=== PATIENT | male | born 1955 | race Caucasian/White ===

== ENCOUNTER 2018-02-23 11:48 | Inpatient (IN) | payer OTHER ==
[2018-02-23] VITALS (7 sets, daily range): BP systolic 148–188; BP diastolic 82–98
[~2018-02-23] VITALS: Ht 182.9 cm; Wt 82.5 kg
[2018-02-23] MEDS ORDERED: SODIUM CHLORIDE FLUSH 10ML SYR IVF ONE (12:30)
[2018-02-23 12:34] LABS: BASOPHILS # (AUTO) 0.03 x10^3/uL (0-0.1); BASOPHILS % (AUTO) 0 % (0-1); EOSINOPHILS # (AUTO) 0.15 x10^3/uL (0-0.4); EOSINOPHILS % (AUTO) 2 % (1-7); LYMPHOCYTES # (AUTO) 0.69 x10^3/uL (1-3.4); LYMPHOCYTES % (AUTO) 9 % (22-44); MD NO; MEAN CORPUSCULAR HEMOGLOBIN 31.8 pg (27.5-34.5); MEAN CORPUSCULAR HGB CONC 34.5 g/dL (33.2-36.2); MEAN CORPUSCULAR VOLUME 92.2 fL (81-97); MONOCYTES # (AUTO) 0.55 x10^3/uL (0.2-0.8); MONOCYTES % (AUTO) 7 % (2-9); NEUTROPHILS # (AUTO) 6.26 x10^3/uL (1.8-6.8); NEUTROPHILS % (AUTO) 82 % (42-75); PLATELET COUNT 218 x10^3/uL (130-400); RED BLOOD COUNT 5.01 x10^6/uL (4.38-5.82); RED CELL DISTRIBUTION WIDTH 13.1 % (9.4-14.8)
--- NOTE | 2018-02-23 12:37 | NUR ---
Jennifer Khan- sister [phone]
[2018-02-23 12:41] LABS: INTERNATIONAL NORMALIZED RATIO 2.01 (0.93-1.1); PROTHROMBIN TIME 20.7 Seconds (9.6-11.5)
[2018-02-23 12:44] LABS: ALANINE AMINOTRANSFERASE 23 U/L (12-78); ALBUMIN 3.6 g/dL (3.4-5.0); ANION GAP 6 mmol/L (5-15); CALCIUM 8.4 mg/dL (8.5-10.1); CHLORIDE 111 mmol/L (98-107); CREATININE 1.12 mg/dL (0.7-1.3); SALICYLATE LEVEL 1.7 mg/dL (2.8-20.0)
[2018-02-23 12:49] LABS: ALKALINE PHOSPHATASE 131 U/L (45-117); BILIRUBIN,TOTAL 0.4 mg/dL (0.2-1.0); TOTAL PROTEIN 7.7 g/dL (6.4-8.2); TROPONIN I < 0.015 ng/mL (0.000-0.045)
[2018-02-23 12:50] LABS: ACETAMINOPHEN < 2 mcg/mL (10-30)
[2018-02-23] MEDS ORDERED: CYAN500L4 PO (13:37)
[2018-02-23] MEDS ORDERED: ATOR10TA9 PO (13:37)
[2018-02-23] MEDS ORDERED: LISI2.5T PO (13:41)
[2018-02-23] MEDS ORDERED: OMEP10CA4 PO (13:41)
[2018-02-23] MEDS ORDERED: TERA1CAP3 PO (13:41)
[2018-02-23] MEDS ORDERED: SIMV5TAB14 PO (13:41)
[2018-02-23] MEDS ORDERED: NIFE10CA49 PO (13:41)
[2018-02-23] MEDS ORDERED: SPIR25TA5 PO (13:41)
[2018-02-23] MEDS ORDERED: WARF1TAB74 PO (13:41)
--- NOTE | 2018-02-23 13:41 | NUR ---
LATE NOTE ENTRY FOR 1208. PT BROUGHT IN BY EMS WITH C/O RIGHT SIDED WEAKNESS AND DEFECITS FOR THREE DAYS WITH "SIGNIFICANT INCREASE IN WEAKNESS FOR THE LAST TWO DAYS." PT HAS MILD WEAKNESS OF LEFT HAND AND MILD WEAKNESS OF RIGHT LEG UPON ASSESSMENT AT BEDSIDE. PT IS AOX4 BUT HAS DIFFICULTY REMEMBERING NAMES OF HIS DOCTORS. PT STATES, "I USE TO DRINK A FEW BEERS A DAY, BUT I QUIT ABOUT A WEEK AGO BECAUSE I WASN'T FEELING WELL." PT'S CLOTHES SATURATED IN URINE UPON ARRIVAL. PT INCONTINENT OF URINE AT HOME DUE TO INABILITY TO GET UP FROM HIS BED. PT LIVES WITH HIS BROTHER IN A 5TH WHEEL PER EMS. PER EMS, "HIS BROTHER LEFT ON 02/10 AND CAME BACK ABOUT 3 DAYS AGO. WHEN THE BROTHER RETURNED HE NOTICED THE PT HAD WEAKENSS. PT AT THE TIME WOULD NOT COME IN FOR MEDICAL ATTENTION. PT AGREED TO SEEK MEDICAL ATTENTION TODAY." PT HAS UNLABORED RESPIRATIONS EQUAL BILATERALLY. PT CONNECTED TO ALL MONITORS. PROVIDED PT HOSPITAL GOWN AND ASSISTED PT WITH REMOVING PERSONAL CLOTHING AND WEARING GOWN. PROVIDED PT WARM BLANKETS FOR COMFORT MEASURES. ALL SAFETY MEASURES IN PLACE AT THIS TIME. PER EMS FSBG 41. EMS PROVIDED D 10 PIV 200 ML. RECHECKED FSBG TWO TIMES, 116 AND 162 PER EMS. CHECKED PT'S BLOOD SUGAR AT BEDSIDE UPON ARRIVAL. FSBG 170.
--- NOTE | 2018-02-23 13:52 | NUR ---
PT RESTING ON GURNEY CONNECTED TO ALL MONITORS. NADN. NO NEEDS EXPRESSED FROM PT AT THIS TIME. ALL SAFETY MEASURES IN PLACE. PT HAS CALL LIGHT WITH IN REACH. NO NEEDS EXPRESSED FROM PT AT THIS TIME.
[2018-02-23] MEDS ORDERED: INSTRUCTION SEE COMMENTS XX ONE (14:00)
[2018-02-23] MEDS ORDERED: PHYTONADIONE 5 MG in SODIUM CHLORIDE 0.9% 50 ML IV ONE ×2 (14:00→16:30)
--- NOTE | 2018-02-23 14:05 | NUR ---
PT'S SISTER BRISEIDA CALLED. PT GIVES VERBAL CONSENT TO SPEAK TO HIS SISTER. UPDATED BRISEIDA ON PT'S PLAN OF CARE. BRISEIDA STATES, "LET HIM KNOW WE ARE PRAYING FOR HIM AND WE ARE COMING UP FROM [facility] TO BE WITH HIM." PT AWARE.
--- NOTE | 2018-02-23 14:13 | NUR ---
PT RESTING ON GURNEY. PT ASKS, "AM I GOING TO BE OKAY." PROVIDED COMFORT MEASURES TO PT AND PROVIDED WARM BLANKETS. RELAYED MESSAGE FROM PT'S SISTER BRISEIDA TO PT. PT APPRECIATIVE. NADN. PT REQUESTING A SANDWICH. PT EDUCATED ON NPO STATUS AND STATES UNDERSTANDING. ALL SAFETY MEASURES IN PLACE.
--- NOTE | 2018-02-23 14:27 | NUR ---
PROVIDED REPORT TO SANJEEV GREENBERG ALL QUESTIONS ANSWERED.
[2018-02-23] MEDS: SODIUM CHLORIDE 0.9% 1,000 ML IV SCH (15:40)
--- NOTE | 2018-02-23 15:44 | NUR ---
Note sweetie in ED - 02/23/18 at 1545 by CHIDI LATE NOTE ENTRY FOR 1500. PROVIDED REPORT TO SANJEEV FERRARI TASK RN. ALL QUESTIONS ANSWERED.
--- NOTE | 2018-02-23 15:46 | NUR ---
LATE NOTE ENTRY FOR 1500. PROVIDED REPORT TO SANJEEV FERRARI TASK RN. ALL QUESTIONS ANSWERED. SANJEEV FERRARI ASSUMING CARE OF PT DURING THIS RN LUNCH BREAK.
--- NOTE | 2018-02-23 15:46 | NUR ---
PT TRANSPORTED TO FLOOR FROM ED WITH PIV [facility] INFUSING AND MEDS PER [facility] INFUSING. PT LEFT WITH ALL PERSONAL BELONGINGS.
[2018-02-23] MEDS: THIAMINE 200 MG, FOLIC ACID 1 MG, MVI ADULT 10 ML in SODIUM CHLORIDE 0.9% 1,000 ML IV SCH (17:42)
[2018-02-23] MEDS: PANTOPRAZOLE 40 MG IV IVPush SCH (17:42)
[2018-02-23 18:26] LABS: CULTURE INDICATED? NO; MICROSCOPIC NOT IND
[2018-02-23 18:34] LABS: AMPHETAMINE SCREEN, URINE Negative (Negative); BARBITURATE SCREEN, URINE Negative (Negative); BENZODIAZEPINE SCREEN, URINE Negative (Negative); CANNABINOID SCREEN, URINE Positive (Negative); COCAINE SCREEN, URINE Negative (Negative); METHADONE SCREEN, URINE Negative (Negative); OPIATE SCREEN, URINE Negative (Negative)
[2018-02-24 00:56] LABS: BASOPHILS % (AUTO) 0 % (0-1); EOSINOPHILS # (AUTO) 0.06 x10^3/uL (0-0.4); EOSINOPHILS % (AUTO) 1 % (1-7); LYMPHOCYTES # (AUTO) 0.69 x10^3/uL (1-3.4); LYMPHOCYTES % (AUTO) 9 % (22-44); MD NO; MEAN CORPUSCULAR HEMOGLOBIN 31.9 pg (27.5-34.5); MEAN CORPUSCULAR HGB CONC 34.7 g/dL (33.2-36.2); MEAN CORPUSCULAR VOLUME 92.1 fL (81-97); MEAN PLATELET VOLUME 7.9 fL (7.4-10.4); MONOCYTES % (AUTO) 9 % (2-9); NEUTROPHILS % (AUTO) 81 % (42-75); PLATELET COUNT 197 x10^3/uL (130-400); RED BLOOD COUNT 4.85 x10^6/uL (4.38-5.82); RED CELL DISTRIBUTION WIDTH 13.2 % (9.4-14.8)
[2018-02-24 01:03] LABS: INTERNATIONAL NORMALIZED RATIO 1.18 (0.93-1.1); PROTHROMBIN TIME 12.4 Seconds (9.6-11.5)
[2018-02-24 01:06] LABS: ALANINE AMINOTRANSFERASE 23 U/L (12-78); ALBUMIN 3.5 g/dL (3.4-5.0); ANION GAP 9 mmol/L (5-15); CALCIUM 8.6 mg/dL (8.5-10.1); CHLORIDE 105 mmol/L (98-107); CREATININE 0.89 mg/dL (0.7-1.3)
[2018-02-24 01:33] LABS: ALKALINE PHOSPHATASE 115 U/L (45-117); BILIRUBIN,TOTAL 0.6 mg/dL (0.2-1.0); THYROID STIMULATING HORMONE 0.601 mIU/L (0.358-3.740); TOTAL PROTEIN 7.6 g/dL (6.4-8.2)
[2018-02-24] MEDS: SODIUM CHLORIDE 0.9% 1,000 ML IV SCH ×2 (03:56→14:34)
[2018-02-24 03:57] VITALS: BP 157/87
[2018-02-24] MEDS ORDERED: THROMBIN 5,000 UNIT VIAL TP ONE (05:36)
[2018-02-24] MEDS ORDERED: BUPIVACAINE/PF-EPI 0.5% 1:200K ONE (05:36)
[2018-02-24] MEDS ORDERED: BACITRACIN 50,000 UNIT ONE (05:36)
[2018-02-24] MEDS ORDERED: MANNITOL PMX 20% 500 ML ONE (06:21)
[2018-02-24] MEDS ORDERED: PROPOFOL 10 MG/ML, 20ML ONE (06:26)
[2018-02-24] MEDS ORDERED: FENTANYL PF 250 MCG/5ML ONE (06:26)
[2018-02-24] MEDS ORDERED: ROCURONIUM 10MG/ML,5ML ONE ×2 (06:26→08:30)
[2018-02-24] MEDS ORDERED: CEFAZOLIN 1,000 MG ONE ×2 (06:27)
[2018-02-24] MEDS ORDERED: DEXAMETHASONE 4 MG/ML, 1ML ONE ×2 (06:27)
[2018-02-24] MEDS ORDERED: PROPOFOL 50 ML ONE (06:28)
[2018-02-24] MEDS ORDERED: hydrALAzine 20 MG/ML, 1ML IV PRN (07:00)
[2018-02-24] MEDS ORDERED: MORPHINE SULFATE 4 MG/ML, 1ML IVPush PRN (07:00)
[2018-02-24] MEDS ORDERED: METOPROLOL 1 MG/ML, 5ML IV PRN (07:00)
[2018-02-24] MEDS ORDERED: OXYcodone 5 MG/5 ML ORAL.SOL UDC PO PRN (07:00)
[2018-02-24] MEDS ORDERED: FENTANYL PF 100 MCG/2ML IV PRN (07:00)
[2018-02-24] MEDS ORDERED: EPHEDRINE 50 MG/ML, 1ML ONE (07:34)
[2018-02-24] MEDS ORDERED: CEFAZOLIN 1,000 MG IM SCH (09:30)
[2018-02-24] MEDS: CEFAZOLIN PMX 1GM/50ML 50 ML IV SCH ×2 (11:38→18:39)
[2018-02-24] MEDS ORDERED: MAGNESIUM SULFATE PMX 2GM/50ML 50 ML IV ONE (12:00)
[2018-02-24] MEDS: ERGOCALCIFEROL 50,000 UNIT CAPSULE PO SCH (12:51)
[2018-02-24] MEDS: THIAMINE 200 MG, FOLIC ACID 1 MG, MVI ADULT 10 ML in SODIUM CHLORIDE 0.9% 1,000 ML IV SCH (16:27)
[2018-02-24] MEDS: PANTOPRAZOLE 40 MG IV IVPush SCH (16:27)
[2018-02-25] MEDS: CEFAZOLIN PMX 1GM/50ML 50 ML IV SCH (01:54)
[2018-02-25 04:00] VITALS: BP 137/95
[2018-02-25] MEDS: SODIUM CHLORIDE 0.9% 1,000 ML IV SCH (04:09)
[2018-02-25 04:17] LABS: INTERNATIONAL NORMALIZED RATIO 1.01 (0.93-1.1); PROTHROMBIN TIME 10.7 Seconds (9.6-11.5)
[2018-02-25 04:18] LABS: BASOPHILS # (AUTO) 0.02 x10^3/uL (0-0.1); BASOPHILS % (AUTO) 0 % (0-1); EOSINOPHILS % (AUTO) 0 % (1-7); LYMPHOCYTES # (AUTO) 0.41 x10^3/uL (1-3.4); LYMPHOCYTES % (AUTO) 4 % (22-44); MD NO; MEAN CORPUSCULAR HEMOGLOBIN 31.8 pg (27.5-34.5); MEAN CORPUSCULAR HGB CONC 33.9 g/dL (33.2-36.2); MEAN CORPUSCULAR VOLUME 93.8 fL (81-97); MEAN PLATELET VOLUME 8.1 fL (7.4-10.4); MONOCYTES # (AUTO) 0.62 x10^3/uL (0.2-0.8); MONOCYTES % (AUTO) 6 % (2-9); NEUTROPHILS # (AUTO) 9.46 x10^3/uL (1.8-6.8); NEUTROPHILS % (AUTO) 90 % (42-75); PLATELET COUNT 209 x10^3/uL (130-400); RED BLOOD COUNT 4.47 x10^6/uL (4.38-5.82)
[2018-02-25 04:21] LABS: ALANINE AMINOTRANSFERASE 17 U/L (12-78); ANION GAP 11 mmol/L (5-15); CALCIUM 7.8 mg/dL (8.5-10.1); CHLORIDE 109 mmol/L (98-107)
[2018-02-25 04:23] LABS: ALKALINE PHOSPHATASE 100 U/L (45-117); BILIRUBIN,TOTAL 0.2 mg/dL (0.2-1.0); TOTAL PROTEIN 6.6 g/dL (6.4-8.2)
[2018-02-25] MEDS ORDERED: POTASSIUM PHOSPHATE 44 MEQ in SODIUM CHLORIDE 0.9% 500 ML IV ONE (07:00)
[2018-02-25] MEDS ORDERED: TAMSULOSIN 0.4 MG CAP.ER.24H PO ONE (12:30)
[2018-02-25] MEDS ORDERED: FINA5TAB4 PO (12:49)
[2018-02-25] MEDS: TERAZOSIN 5MG CAPSULE PO SCH (14:07)
[2018-02-25] MEDS: LISINOPRIL 20 MG TABLET PO SCH ×2 (15:19→21:12)
[2018-02-25] MEDS ORDERED: MELATONIN 3 MG TABLET PO PRN (17:30)
[2018-02-25] MEDS: PANTOPRAZOLE 40 MG IV IVPush SCH (17:48)
[2018-02-25] MEDS: THIAMINE 200 MG, FOLIC ACID 1 MG, MVI ADULT 10 ML in SODIUM CHLORIDE 0.9% 1,000 ML IV SCH (17:49)
[2018-02-25] MEDS ORDERED: ONDANSETRON 2MG/ML, 2ML ONE (18:25)
[2018-02-25] MEDS ORDERED: SODIUM CHLORIDE 0.9%, 500ML IVBOLUS ONE (19:00)
[2018-02-25 19:16] LABS: ANION GAP 9 mmol/L (5-15); CALCIUM 8.2 mg/dL (8.5-10.1); CHLORIDE 106 mmol/L (98-107); CREATININE 1.18 mg/dL (0.7-1.3)
[2018-02-25] MEDS ORDERED: LEVETIRACETAM 1,000 MG in SODIUM CHLORIDE 0.9% 100 ML IV ONE (20:00)
[2018-02-25] MEDS ORDERED: ONDANSETRON 2MG/ML, 2ML IVPush PRN (20:00)
[2018-02-25 20:25] LABS: TROPONIN I < 0.015 ng/mL (0.000-0.045)
[2018-02-25] MEDS: ATORVASTATIN 20 MG TABLET PO SCH (21:12)
[2018-02-25] MEDS: LEVETIRACETAM 500 MG TABLET PO SCH (22:07)
[2018-02-26 04:00] VITALS: BP 140/75
[2018-02-26 04:28] LABS: BASOPHILS # (AUTO) 0.04 x10^3/uL (0-0.1); BASOPHILS % (AUTO) 1 % (0-1); EOSINOPHILS # (AUTO) 0.05 x10^3/uL (0-0.4); EOSINOPHILS % (AUTO) 1 % (1-7); LYMPHOCYTES # (AUTO) 0.89 x10^3/uL (1-3.4); LYMPHOCYTES % (AUTO) 12 % (22-44); MD NO; MEAN CORPUSCULAR HEMOGLOBIN 31.9 pg (27.5-34.5); MEAN CORPUSCULAR VOLUME 93.7 fL (81-97); MEAN PLATELET VOLUME 7.9 fL (7.4-10.4); MONOCYTES # (AUTO) 0.67 x10^3/uL (0.2-0.8); MONOCYTES % (AUTO) 9 % (2-9); NEUTROPHILS # (AUTO) 5.52 x10^3/uL (1.8-6.8); NEUTROPHILS % (AUTO) 77 % (42-75); PLATELET COUNT 208 x10^3/uL (130-400); RED BLOOD COUNT 4.11 x10^6/uL (4.38-5.82); RED CELL DISTRIBUTION WIDTH 13.5 % (9.4-14.8)
[2018-02-26 04:34] LABS: INTERNATIONAL NORMALIZED RATIO 0.98 (0.93-1.1); PROTHROMBIN TIME 10.4 Seconds (9.6-11.5)
[2018-02-26 04:38] LABS: ANION GAP 7 mmol/L (5-15); CALCIUM 8.3 mg/dL (8.5-10.1); CHLORIDE 111 mmol/L (98-107); CREATININE 0.99 mg/dL (0.7-1.3)
[2018-02-26] MEDS: LISINOPRIL 20 MG TABLET PO SCH ×2 (08:54→20:25)
[2018-02-26] MEDS: ACETAMINOPHEN 325 MG TABLET PO PRN (08:54)
[2018-02-26] MEDS ORDERED: SPIRONOLACTONE 25 MG TABLET PO SCH (09:00)
[2018-02-26] MEDS: LEVETIRACETAM 500 MG TABLET PO SCH ×2 (10:33→20:24)
[2018-02-26] MEDS: TERAZOSIN 5MG CAPSULE PO SCH (10:33)
[2018-02-26] MEDS: CYANOCOBALOMIN 100MCG TABLET PO SCH (10:37)
[2018-02-26] MEDS: THIAMINE 200 MG, FOLIC ACID 1 MG, MVI ADULT 10 ML in SODIUM CHLORIDE 0.9% 1,000 ML IV SCH (17:18)
[2018-02-26] MEDS: PANTOPROZOLE 40MG TABLET PO SCH (17:18)
[2018-02-26] MEDS: ATORVASTATIN 20 MG TABLET PO SCH (20:24)
[2018-02-27 04:00] VITALS: BP 160/95
[2018-02-27 04:40] LABS: BASOPHILS # (AUTO) 0.01 x10^3/uL (0-0.1); BASOPHILS % (AUTO) 0 % (0-1); EOSINOPHILS # (AUTO) 0.25 x10^3/uL (0-0.4); EOSINOPHILS % (AUTO) 4 % (1-7); LYMPHOCYTES # (AUTO) 0.79 x10^3/uL (1-3.4); LYMPHOCYTES % (AUTO) 13 % (22-44); MD NO; MEAN CORPUSCULAR HEMOGLOBIN 32.1 pg (27.5-34.5); MEAN CORPUSCULAR HGB CONC 34.3 g/dL (33.2-36.2); MEAN CORPUSCULAR VOLUME 93.4 fL (81-97); MEAN PLATELET VOLUME 8.1 fL (7.4-10.4); MONOCYTES # (AUTO) 0.66 x10^3/uL (0.2-0.8); MONOCYTES % (AUTO) 11 % (2-9); NEUTROPHILS # (AUTO) 4.35 x10^3/uL (1.8-6.8); NEUTROPHILS % (AUTO) 72 % (42-75); PLATELET COUNT 181 x10^3/uL (130-400); RED BLOOD COUNT 4.16 x10^6/uL (4.38-5.82); RED CELL DISTRIBUTION WIDTH 13.4 % (9.4-14.8)
[2018-02-27 04:56] LABS: CALCIUM 7.5 mg/dL (8.5-10.1); CHLORIDE 108 mmol/L (98-107)
[2018-02-27 05:02] LABS: ALANINE AMINOTRANSFERASE 19 U/L (12-78); ALBUMIN 2.5 g/dL (3.4-5.0); ALKALINE PHOSPHATASE 91 U/L (45-117); ANION GAP 5 mmol/L (5-15); BILIRUBIN,TOTAL 0.2 mg/dL (0.2-1.0); CREATININE 1.01 mg/dL (0.7-1.3); TOTAL PROTEIN 5.7 g/dL (6.4-8.2)
[2018-02-27] MEDS: ACETAMINOPHEN 325 MG TABLET PO PRN (05:52)
[2018-02-27] MEDS: LISINOPRIL 20 MG TABLET PO SCH ×2 (06:25→20:26)
[2018-02-27] MEDS ORDERED: MAGNESIUM SULFATE PMX 4GM/100M 100 ML IV ONE (08:00)
[2018-02-27] MEDS: LEVETIRACETAM 500 MG TABLET PO SCH ×2 (09:51→20:26)
[2018-02-27] MEDS: CYANOCOBALOMIN 100MCG TABLET PO SCH (09:51)
[2018-02-27] MEDS: TERAZOSIN 5MG CAPSULE PO SCH (09:52)
[2018-02-27] MEDS ORDERED: LABETALOL 5MG/ML, 20ML IVPush PRN (10:30)
[2018-02-27] MEDS: THIAMINE 200 MG, FOLIC ACID 1 MG, MVI ADULT 10 ML in SODIUM CHLORIDE 0.9% 1,000 ML IV SCH (17:45)
[2018-02-27] MEDS: PANTOPROZOLE 40MG TABLET PO SCH (17:45)
[2018-02-27] MEDS: ATORVASTATIN 20 MG TABLET PO SCH (20:26)
[2018-02-28 04:30] VITALS: BP 120/89
[2018-02-28 06:49] LABS: BASOPHILS # (AUTO) 0.02 x10^3/uL (0-0.1); BASOPHILS % (AUTO) 0 % (0-1); EOSINOPHILS # (AUTO) 0.29 x10^3/uL (0-0.4); EOSINOPHILS % (AUTO) 5 % (1-7); LYMPHOCYTES # (AUTO) 1.13 x10^3/uL (1-3.4); LYMPHOCYTES % (AUTO) 18 % (22-44); MD NO; MEAN CORPUSCULAR HEMOGLOBIN 31.5 pg (27.5-34.5); MEAN CORPUSCULAR HGB CONC 33.8 g/dL (33.2-36.2); MEAN CORPUSCULAR VOLUME 93.1 fL (81-97); MEAN PLATELET VOLUME 7.5 fL (7.4-10.4); MONOCYTES # (AUTO) 0.74 x10^3/uL (0.2-0.8); MONOCYTES % (AUTO) 12 % (2-9); NEUTROPHILS # (AUTO) 4.02 x10^3/uL (1.8-6.8); NEUTROPHILS % (AUTO) 65 % (42-75); PLATELET COUNT 201 x10^3/uL (130-400); RED BLOOD COUNT 4.37 x10^6/uL (4.38-5.82); RED CELL DISTRIBUTION WIDTH 13.1 % (9.4-14.8)
[2018-02-28 07:00] LABS: ANION GAP 5 mmol/L (5-15); CALCIUM 8.1 mg/dL (8.5-10.1); CHLORIDE 109 mmol/L (98-107)
[2018-02-28] MEDS ORDERED: FOLIC ACID 1 MG TABLET PO SCH (09:30)
[2018-02-28] MEDS: TERAZOSIN 5MG CAPSULE PO SCH (09:31)
[2018-02-28] MEDS: LISINOPRIL 20 MG TABLET PO SCH ×2 (09:31→20:34)
[2018-02-28] MEDS: LEVETIRACETAM 500 MG TABLET PO SCH ×2 (09:31→20:34)
[2018-02-28] MEDS: CYANOCOBALOMIN 100MCG TABLET PO SCH (09:31)
[2018-02-28] MEDS ORDERED: TAMSULOSIN 0.4 MG CAP.ER.24H PO ONE (10:30)
[2018-02-28] MEDS: FOLIC ACID 1 MG TABLET PO SCH (10:37)
[2018-02-28] MEDS: THIAMINE 100MG TABLET PO SCH ×2 (10:37→20:34)
[2018-02-28] MEDS: ATORVASTATIN 20 MG TABLET PO SCH (20:34)
[2018-03-01] MEDS ORDERED: CALCIUM CARBONATE 500 MG TAB.CHEW ONE (02:51)
[2018-03-01] MEDS ORDERED: CALCIUM CARBONATE 500 MG TAB.CHEW PO PRN (03:00)
[2018-03-01 04:15] VITALS: BP 141/87
[2018-03-01] MEDS: TAMSULOSIN 0.4 MG CAP.ER.24H PO SCH (09:22)
[2018-03-01] MEDS: CYANOCOBALOMIN 100MCG TABLET PO SCH (09:22)
[2018-03-01] MEDS: LISINOPRIL 20 MG TABLET PO SCH ×2 (09:23→21:33)
[2018-03-01] MEDS: FOLIC ACID 1 MG TABLET PO SCH (09:23)
[2018-03-01] MEDS: THIAMINE 100MG TABLET PO SCH ×2 (09:23→21:33)
[2018-03-01] MEDS: LEVETIRACETAM 500 MG TABLET PO SCH ×2 (09:24→21:33)
[2018-03-01] MEDS: TERAZOSIN 5MG CAPSULE PO SCH (09:24)
[2018-03-01 20:00] VITALS: BP 105/68
[2018-03-01] MEDS: ATORVASTATIN 20 MG TABLET PO SCH (21:33)
[2018-03-02 01:23] VITALS: BP 129/85
[2018-03-02 07:31] VITALS: BP 108/72
[2018-03-02] MEDS: THIAMINE 100MG TABLET PO SCH ×2 (08:03→22:33)
[2018-03-02] MEDS: CYANOCOBALOMIN 100MCG TABLET PO SCH (08:04)
[2018-03-02] MEDS: FOLIC ACID 1 MG TABLET PO SCH (08:04)
[2018-03-02] MEDS: LISINOPRIL 20 MG TABLET PO SCH ×2 (08:04→22:37)
[2018-03-02] MEDS: LEVETIRACETAM 500 MG TABLET PO SCH ×2 (08:04→22:37)
[2018-03-02] MEDS: TERAZOSIN 5MG CAPSULE PO SCH (08:04)
[2018-03-02] MEDS: TAMSULOSIN 0.4 MG CAP.ER.24H PO SCH (08:04)
[2018-03-02] MEDS ORDERED: OMEPRAZOLE 20 MG CAPSULE.DR ONE (10:28)
[2018-03-02] MEDS ORDERED: OMEPRAZOLE 20 MG CAPSULE.DR PO SCH (10:30)
[2018-03-02 12:31] VITALS: BP 125/79
[2018-03-02 20:50] VITALS: BP 113/77
[2018-03-02] MEDS: OMEPRAZOLE 20 MG CAPSULE.DR PO SCH (22:35)
[2018-03-02] MEDS: ATORVASTATIN 20 MG TABLET PO SCH (22:36)
[2018-03-03 02:15] VITALS: BP 117/75
[2018-03-03] MEDS: OMEPRAZOLE 20 MG CAPSULE.DR PO SCH ×2 (05:25→21:28)
[2018-03-03 06:32] LABS: ANION GAP 9 mmol/L (5-15); CALCIUM 8.5 mg/dL (8.5-10.1); CHLORIDE 108 mmol/L (98-107)
[2018-03-03 06:49] LABS: CREATININE 1.06 mg/dL (0.7-1.3)
[2018-03-03 07:00] VITALS: BP 121/77
[2018-03-03] MEDS: CYANOCOBALOMIN 100MCG TABLET PO SCH (09:57)
[2018-03-03] MEDS: LEVETIRACETAM 500 MG TABLET PO SCH ×2 (09:57→21:27)
[2018-03-03] MEDS: FOLIC ACID 1 MG TABLET PO SCH (09:57)
[2018-03-03] MEDS: LISINOPRIL 20 MG TABLET PO SCH ×2 (09:57→21:27)
[2018-03-03] MEDS: THIAMINE 100MG TABLET PO SCH ×2 (09:57→21:27)
[2018-03-03] MEDS: TAMSULOSIN 0.4 MG CAP.ER.24H PO SCH (09:58)
[2018-03-03] MEDS: TERAZOSIN 5MG CAPSULE PO SCH (09:58)
[2018-03-03] MEDS ORDERED: FOLI-17 PO (11:11)
[2018-03-03] MEDS ORDERED: THIA100T67 PO (11:11)
[2018-03-03] MEDS ORDERED: MULT1TAB60 PO (11:11)
[2018-03-03] MEDS ORDERED: ERGO500017 PO (11:11)
[2018-03-03] MEDS ORDERED: MELA3TAB2 PO (11:11)
[2018-03-03] MEDS ORDERED: TERA5CAP3 PO (11:11)
[2018-03-03] MEDS ORDERED: LEVE500T53 PO (11:11)
[2018-03-03] MEDS ORDERED: MAGN400T26 PO (11:11)
[2018-03-03] MEDS ORDERED: CALC200T24 PO (11:11)
[2018-03-03] MEDS ORDERED: LABE100T6 PO (11:11)
[2018-03-03] MEDS ORDERED: LISI-170 PO (11:11)
[2018-03-03] MEDS ORDERED: TAMS-11 PO (11:11)
[2018-03-03 12:13] VITALS: BP 98/66
[2018-03-03] MEDS: ERGOCALCIFEROL 50,000 UNIT CAPSULE PO SCH (12:26)
[2018-03-03] MEDS: LABETALOL 100 MG TABLET PO SCH (17:14)
[2018-03-03 19:45] VITALS: BP 110/74
[2018-03-03] MEDS: ATORVASTATIN 20 MG TABLET PO SCH (21:26)
[2018-03-04 03:23] VITALS: BP 109/68
[2018-03-04] MEDS: OMEPRAZOLE 20 MG CAPSULE.DR PO SCH ×2 (06:00→18:02)
[2018-03-04] MEDS: ACETAMINOPHEN 325 MG TABLET PO PRN (06:02)
[2018-03-04 06:28] VITALS: BP 121/76
[2018-03-04] MEDS: LEVETIRACETAM 500 MG TABLET PO SCH ×2 (10:29→21:12)
[2018-03-04] MEDS: TAMSULOSIN 0.4 MG CAP.ER.24H PO SCH (10:29)
[2018-03-04] MEDS: FOLIC ACID 1 MG TABLET PO SCH (10:29)
[2018-03-04] MEDS: THIAMINE 100MG TABLET PO SCH ×2 (10:29→21:13)
[2018-03-04] MEDS: LISINOPRIL 20 MG TABLET PO SCH ×2 (10:30→21:13)
[2018-03-04] MEDS: TERAZOSIN 5MG CAPSULE PO SCH (10:30)
[2018-03-04] MEDS: LABETALOL 100 MG TABLET PO SCH ×2 (10:32→18:03)
[2018-03-04] MEDS: CYANOCOBALOMIN 100MCG TABLET PO SCH (10:33)
[2018-03-04 12:52] VITALS: BP 100/70
[2018-03-04 18:00] VITALS: BP 134/81
[2018-03-04] MEDS: ATORVASTATIN 20 MG TABLET PO SCH (21:12)
[2018-03-04 21:22] VITALS: BP 123/78
[2018-03-05 02:00] VITALS: BP 114/81
[2018-03-05 06:51] VITALS: BP 123/78
[2018-03-05] MEDS: OMEPRAZOLE 20 MG CAPSULE.DR PO SCH ×2 (06:52→20:09)
[2018-03-05] MEDS: ACETAMINOPHEN 325 MG TABLET PO PRN (07:15)
[2018-03-05] MEDS: TERAZOSIN 5MG CAPSULE PO SCH (11:04)
[2018-03-05] MEDS: LISINOPRIL 20 MG TABLET PO SCH ×2 (11:04→20:10)
[2018-03-05] MEDS: LEVETIRACETAM 500 MG TABLET PO SCH ×2 (11:04→20:08)
[2018-03-05] MEDS: TAMSULOSIN 0.4 MG CAP.ER.24H PO SCH (11:04)
[2018-03-05] MEDS: LABETALOL 100 MG TABLET PO SCH ×2 (11:05→20:09)
[2018-03-05] MEDS: CYANOCOBALOMIN 100MCG TABLET PO SCH (11:05)
[2018-03-05] MEDS: FOLIC ACID 1 MG TABLET PO SCH (11:05)
[2018-03-05] MEDS: THIAMINE 100MG TABLET PO SCH ×2 (11:05→20:09)
[2018-03-05 13:11] VITALS: BP 109/72
[2018-03-05 20:01] VITALS: BP 136/95
[2018-03-05] MEDS: ATORVASTATIN 20 MG TABLET PO SCH (20:09)
[2018-03-06 02:30] VITALS: BP 125/80
[2018-03-06] MEDS: OMEPRAZOLE 20 MG CAPSULE.DR PO SCH (05:46)
[2018-03-06 06:59] VITALS: BP 131/92
[2018-03-06] MEDS: CYANOCOBALOMIN 100MCG TABLET PO SCH (08:28)
[2018-03-06] MEDS: LEVETIRACETAM 500 MG TABLET PO SCH (08:28)
[2018-03-06] MEDS: THIAMINE 100MG TABLET PO SCH (08:28)
[2018-03-06] MEDS: LISINOPRIL 20 MG TABLET PO SCH (08:28)
[2018-03-06] MEDS: FOLIC ACID 1 MG TABLET PO SCH (08:29)
[2018-03-06] MEDS: TERAZOSIN 5MG CAPSULE PO SCH (08:29)
[2018-03-06] MEDS: LABETALOL 100 MG TABLET PO SCH (08:29)
[2018-03-06] MEDS: TAMSULOSIN 0.4 MG CAP.ER.24H PO SCH (08:29)
[2018-03-06] MEDS ORDERED: CALC-666 PO (10:39)
[2018-03-06 12:33] VITALS: BP 142/91
== END 2018-03-06 12:55 | disposition home health service (06) | DRG 25 ==
LOC: ED 13:39 → EDIP 13:44 → CCU 14:36 → ICU 02-26 07:12 → 4EST 03-01 16:46 → 4NOR 03-03 02:12 → DCLOUNGE 03-06 12:44
PROVIDERS: ADMIT Hospitalist; ATTEND Hospitalist
PROC: 30233K1 Transfusion of Nonautologous Frozen Plasma into Peripheral Vein, Percutaneous Approach (ICD-10-PCS; 2018-02-23)
PROC: 0WC10ZZ Extirpation of Matter from Cranial Cavity, Open Approach (ICD-10-PCS; 2018-02-23)
PROC: 009600Z Drainage of Cerebral Ventricle with Drainage Device, Open Approach (ICD-10-PCS; principal; 2018-02-24 07:00)
DX: I62.02 Nontraumatic subacute subdural hemorrhage (principal); J96.00 Acute respiratory failure, unspecified whether with hypoxia or hypercapnia; G93.40 Encephalopathy, unspecified; G81.91 Hemiplegia, unspecified affecting right dominant side; I62.03 Nontraumatic chronic subdural hemorrhage; I62.01 Nontraumatic acute subdural hemorrhage; R47.01 Aphasia; G93.89 Other specified disorders of brain; E55.9 Vitamin D deficiency, unspecified; E16.2 Hypoglycemia, unspecified; E78.00 Pure hypercholesterolemia, unspecified; F10.10 Alcohol abuse, uncomplicated; Z96.651 Presence of right artificial knee joint; I10 Essential (primary) hypertension; R32 Unspecified urinary incontinence; T45.515A Adverse effect of anticoagulants, initial encounter; Y92.89 Other specified places as the place of occurrence of the external cause; Z86.718 Personal history of other venous thrombosis and embolism; Z86.711 Personal history of pulmonary embolism; Z79.899 Other long term (current) drug therapy; Z79.01 Long term (current) use of anticoagulants
CPT/HCPCS: 36415; 70450; 71045; 80048; 80053; 80307; 80329; 81003; 82140; 82306; 82550; 82607; 82962; 83605; 83735; 84100; 84443; 84484; 85014; 85018; 85025; 85610; 86850; 86900; 87081; 93005; 93306; 93970; C1713; G0378; J0690; J1100; J1953; J2704; J3010; J3411; J3430; J7060; 92523-GN; C9113; G0480; J3475; J7030; J7040; P9017